=== PATIENT | male | born 1960 | race Caucasian/White ===

== ENCOUNTER 2020-11-28 09:14 | Outpatient (CLI) | payer BC | END 2020-11-28 09:15 | disposition home or self-care (01) | LOC: BICULT 09:14 | PROVIDERS: ATTEND Surgery | DX: R10.11 Right upper quadrant pain (principal); K76.0 Fatty (change of) liver, not elsewhere classified | CPT/HCPCS: 76705 ==

== ENCOUNTER 2020-11-29 13:41 | Inpatient (IN) | payer BC ==
[~2020-11-29 13:41] MED LIST: Iopamidol-370 76% 500 ML 1 ML ONE
[2020-11-29] MEDS ORDERED: Morphine 2 MG/ML VIAL SLOW IVP PRN (17:28)
[2020-11-29] MEDS ORDERED: Promethazine HCl 25 MG/ML VIAL IM PRN (17:28)
[2020-11-29] MEDS ORDERED: Ondansetron PF 4 MG/2 ML Vial IVP PRN (17:28)
[2020-11-29] MEDS ORDERED: Morphine 4 MG/ML VIAL SLOW IVP PRN (17:28)
[2020-11-29] MEDS ORDERED: Dextrose 5% in Water 1,000 ML IV PRN (17:28)
[2020-11-29] MEDS ORDERED: Acetaminophen 325 MG TAB PO PRN (17:28)
[2020-11-29] MEDS ORDERED: Dextrose 50% Abboject 50 ML SYRINGE SLOW IVP PRN (17:28)
[2020-11-29] MEDS ORDERED: Insulin Regular 300 UNITS/3 ML VIAL SC PRN (17:28)
[2020-11-29] MEDS ORDERED: hydrALAZINE 20 MG/ML VIAL SLOW IVP PRN (17:28)
[2020-11-29] MEDS ORDERED: Pantoprazole 40 MG VIAL IVP SCH (17:33)
[2020-11-29 17:36] VITALS: BMI 31.4
[2020-11-29] MEDS ORDERED: Sodium Chloride 0.9% (PF) 10 ML VIAL FS PRN (18:00)
[2020-11-29] MEDS: D5 1/2 NS w/20 mEq KCL 1,000 ML IV SCH (18:20)
[2020-11-30] MEDS: D5 1/2 NS w/20 mEq KCL 1,000 ML IV SCH ×4 (00:21→18:30)
[2020-11-30 02:23] LABS: SARS-CoV-2 PCR by NAA Not Detected (NotDetected)
[2020-11-30 06:33] LABS: #Basophils 0.1 thou/uL (0.0-0.2); #Eosinphils 0.3 thou/uL (0.0-0.7); #Lymphocytes 2.4 thou/uL (1.20-3.40); #Monocytes 0.9 thou/uL (0.11-0.59); #Neutrophils 6.9 thou/uL (1.40-6.50); %Basophils 0.6 % (0.0-1.0); %Eosinophils 2.7 % (0.0-10.0); %Monocytes 8.2 % (0.0-10.0); %Neutrophils 65.5 % (42.0-75.0); Mean Corpuscular HGB CONC 34.2 g/dL (32.0-36.0); Mean Corpuscular Hemoglobin 32.8 pg (27.0-31.0); Mean Corpuscular Volume 95.7 fL (78.0-98.0); Mean Platelet Volume 6.9 fL (7.4-10.4); Platelet Count 265 thou/uL (130-400); RBC Distribution Width 11.4 % (11.5-14.5); Red Blood Cell (RBC) Count 4.58 mill/uL (4.70-6.10); White Blood Cell (WBC) Count 10.5 thou/uL (4.8-10.8)
[2020-11-30 06:39] LABS: Prothrombin Time 13.4 sec (12.0-14.7)
[2020-11-30 06:40] LABS: PTT 33.4 sec (22.9-36.1)
[2020-11-30] MEDS: Pantoprazole 40 MG VIAL IVP SCH (08:24)
[2020-12-01] MEDS: D5 1/2 NS w/20 mEq KCL 1,000 ML IV SCH ×2 (02:19→09:06)
[2020-12-01] MEDS: Pantoprazole 40 MG VIAL IVP SCH (08:06)
[2020-12-01] MEDS ORDERED: PROPOFOL 200 MG/20 ML VIAL ONE (09:54)
[2020-12-01 14:56] VITALS: BP 162/94; TEMP 97.8
== END 2020-12-01 14:50 | disposition home or self-care (01) | DRG 437 ==
LOC: T4-B 17:01
PROVIDERS: ADMIT Surgery; ATTEND Surgery
PROC: 0DB38ZX Excision of Lower Esophagus, Via Natural or Artificial Opening Endoscopic, Diagnostic (ICD-10-PCS; principal; 2020-12-01)
DX: C78.7 Secondary malignant neoplasm of liver and intrahepatic bile duct (principal); I10 Essential (primary) hypertension; E11.9 Type 2 diabetes mellitus without complications; Z20.822 Contact with and (suspected) exposure to COVID-19; Z79.84 Long term (current) use of oral hypoglycemic drugs; Z79.899 Other long term (current) drug therapy
CPT/HCPCS: 36415; 36416; 74177; 76705; 80053; 82378; 83690; 85025; 85610; 85730; 87635; 88305; 88341; 88342; C9113; J2704; J3480; Q9967; U0003; U0005

== ENCOUNTER 2020-12-12 10:12 | Outpatient (CLI) | payer BC | END 2020-12-12 10:13 | disposition home or self-care (01) | LOC: PET 10:12 | PROVIDERS: ATTEND Internal Medicine Hematology & Oncology | DX: C15.9 Malignant neoplasm of esophagus, unspecified (principal); C78.7 Secondary malignant neoplasm of liver and intrahepatic bile duct; R59.0 Localized enlarged lymph nodes | CPT/HCPCS: 78815; A9552 ==

== ENCOUNTER 2020-12-22 09:27 | Outpatient (CLI) | payer BC ==
[2020-12-22 20:11] LABS: SARS-CoV-2 PCR by NAA Not Detected (NotDetected)
== END 2020-12-22 09:28 | disposition home or self-care (01) ==
LOC: LABBT 09:27
PROVIDERS: ATTEND Surgery
DX: Z01.812 Encounter for preprocedural laboratory examination (principal); C15.9 Malignant neoplasm of esophagus, unspecified; Z20.822 Contact with and (suspected) exposure to COVID-19
CPT/HCPCS: 87635; U0003; U0005

== ENCOUNTER 2020-12-25 13:12 | Outpatient (CLI) | payer BC | END 2020-12-25 13:13 | disposition home or self-care (01) | LOC: ULT 13:12 | PROVIDERS: ATTEND Internal Medicine Hematology & Oncology | DX: Z51.11 Encounter for antineoplastic chemotherapy (principal); C15.5 Malignant neoplasm of lower third of esophagus; I08.1 Rheumatic disorders of both mitral and tricuspid valves; Z79.899 Other long term (current) drug therapy | CPT/HCPCS: 93306 ==

== ENCOUNTER 2020-12-27 12:06 | Day surgery (SDC) | payer BC ==
[2020-12-26 11:42] VITALS: BMI 30.8
[2020-12-27] MEDS ORDERED: Midazolam HCl 2 mg/2 ml Vial ONE ×2 (13:34→13:52)
[2020-12-27] MEDS ORDERED: Bupivacaine 0.25% HCL 30 ML VIAL ONE (13:49)
[2020-12-27] MEDS ORDERED: Lidocaine 1% w/Epinephrine 1:100K 20 ML VIAL ONE (13:49)
[2020-12-27] MEDS ORDERED: Propofol 500 MG/50 ML VIAL ONE (13:52)
[2020-12-27] MEDS ORDERED: Fentanyl 100 MCG/2 ML VIAL ONE (13:52)
== END 2020-12-27 15:17 | disposition home or self-care (01) ==
LOC: SDC 12:06
PROVIDERS: ATTEND Surgery
PROC: 02HV33Z Insertion of Infusion Device into Superior Vena Cava, Percutaneous Approach (ICD-10-PCS; principal; 2020-12-27)
PROC: 0JH60WZ Insertion of Totally Implantable Vascular Access Device into Chest Subcutaneous Tissue and Fascia, Open Approach (ICD-10-PCS; principal; 2020-12-27)
DX: C15.9 Malignant neoplasm of esophagus, unspecified (principal); C78.7 Secondary malignant neoplasm of liver and intrahepatic bile duct; I10 Essential (primary) hypertension; Z79.84 Long term (current) use of oral hypoglycemic drugs; Z79.899 Other long term (current) drug therapy
CPT/HCPCS: 71045; C1788; J0690; J1642; J2250; J2704; J3010; S0020

== ENCOUNTER 2021-03-22 09:45 | Inpatient (IN) | payer BC ==
[2021-03-22] MEDS ORDERED: Morphine 4 MG/ML VIAL ONE (10:29)
[2021-03-22] MEDS ORDERED: Ondansetron PF 4 MG/2 ML Vial ONE (10:29)
[2021-03-22 10:30] LABS: Hemoglobin 10.2 g/dL (14.0-18.0); Mean Corpuscular HGB CONC 31.9 g/dL (32.0-36.0); Mean Corpuscular Hemoglobin 29.2 pg (27.0-31.0); Mean Corpuscular Volume 91.8 fL (78.0-98.0); Mean Platelet Volume 7.5 fL (7.4-10.4); Platelet Count 309 thou/uL (130-400); RBC Distribution Width 16.8 % (11.5-14.5); Red Blood Cell (RBC) Count 3.48 mill/uL (4.70-6.10); White Blood Cell (WBC) Count 28.6 thou/uL (4.8-10.8)
[2021-03-22 10:40] LABS: INR-International Normal Ratio 1.1; PTT 37.5 sec (22.9-36.1); Prothrombin Time 14.3 sec (12.0-14.7)
[2021-03-22 10:47] LABS: ALT (SGPT) 24 U/L (8-55); AST (SGOT) 69 U/L (5-34); Albumin 2.9 g/dL (3.4-4.8); Alkaline Phosphatase 315 U/L (40-110); Anion Gap 12 mmol/L (10-20); BUN (Urea Nitrogen) 21 mg/dL (8.4-25.7); Bilirubin, Total 0.6 mg/dL (0.2-1.2); Calc. Creatinine Clearance 0 mL/min (70-130); Calcium 11.8 mg/dL (7.8-10.44); Carbon Dioxide 27 mmol/L (23-31); Chloride 101 mmol/L (98-107); Globulin 4.1 g/dL (2.4-3.5); Glucose 121 mg/dL (80-115); Potassium 3.9 mmol/L (3.5-5.1); Sodium 136 mmol/L (136-145)
[2021-03-22 10:56] LABS: Band 11 % (5-11); Eosinophils 4 % (0-10); Lymphocytes 10 % (21-51); MDiff Complete? YES; Metamyelocyte 1 % (0-0); Monocytes 2 % (0-10); Neutrophil 72 % (42-75); Platelet Morphology Comment Appears Adequate; Polychromasia SLIGHT = 2-3 cells (100X) (0-2/hpf)
[2021-03-22 12:05] LABS: Bilirubin Negative (Negative); Blood, Urine Negative (Negative); Clarity Clear (Clear); Glucose, Urine (Dipstick) Normal (Negative); Ketone, Urine Negative (Negative); Leukocyte Negative Leu/uL (Negative); Nitrite Negative (Negative); Protein, Urine (Dipstick) 10 mg/dL (Neg-Trace); Specific Gravity, Urine 1.017 (1.002-1.036); Urobilinogen Normal mg/dL (Less than 2)
[2021-03-22 12:42] LABS: SARS-CoV-2 NAA Rapid Test Not Detected (NotDetected)
[2021-03-22] MEDS ORDERED: VANCOMYCIN 2 GRAM/400 ML BAG 2 GM in Premix Bag 1 BAG IVPB SCH (13:30)
[2021-03-22] MEDS ORDERED: Ondansetron ODT 4 MG TAB PO PRN (13:58)
[2021-03-22] MEDS ORDERED: Acetaminophen 650 MG Suppository PR PRN (13:58)
[2021-03-22 14:07] LABS: Lactic Acid 1.8 mmol/L (0.5-2.2)
[2021-03-22] MEDS ORDERED: Cefepime 2 GM in Sodium Chloride 0.9% 100 ML IVPB SCH (16:00)
[2021-03-22] MEDS ORDERED: Morphine 4 MG/ML VIAL SLOW IVP PRN ×2 (16:12→16:27)
[2021-03-22] MEDS ORDERED: Morphine 2 MG/ML VIAL SLOW IVP PRN ×2 (16:12→16:27)
[2021-03-22] MEDS ORDERED: Sodium Chloride 0.9% 1,000 ML IV SCH (16:15)
[2021-03-22] MEDS ORDERED: Mineral Oil ENEMA PR SCH (16:30)
[2021-03-22] MEDS ORDERED: Magnesium 2 GM/50 ML 2 GM in Premix Bag 1 BAG IVPB SCH (17:00)
[2021-03-22] MEDS: Lactated Ringer's 1,000 ML IV SCH (17:22)
[2021-03-22] MEDS: Morphine 4 MG/ML VIAL SLOW IVP SCH ×2 (17:23→20:18)
[2021-03-22 18:25] VITALS: BMI 24.5
[2021-03-22] MEDS: Senokot S 8.6-50 MG TAB PO SCH (20:19)
[2021-03-23] MEDS: VANCOMYCIN 1.25 GM/250 ML BAG 1.25 GM in Premix Bag 1 BAG IVPB SCH ×2 (00:05→18:22)
[2021-03-23] MEDS: Lactated Ringer's 500 ML IV SCH ×2 (00:39→00:53)
[2021-03-23] MEDS ORDERED: Lactated Ringer's 500 ML IV SCH ×3 (00:45→02:30)
[2021-03-23] MEDS: Morphine 4 MG/ML VIAL SLOW IVP SCH ×3 (01:26→20:44)
[2021-03-23] MEDS: Lactated Ringer's 1,000 ML IV SCH ×4 (02:26→23:38)
[2021-03-23] MEDS ORDERED: Morphine 4 MG/ML VIAL SLOW IVP PRN ×3 (04:40→09:08)
[2021-03-23] MEDS ORDERED: Morphine 2 MG/ML VIAL SLOW IVP PRN ×4 (04:40→09:08)
[2021-03-23] MEDS ORDERED: Cefepime 2 GM in Sodium Chloride 0.9% 100 ML IVPB SCH (06:00)
[2021-03-23 07:07] LABS: ALT (SGPT) 60 U/L (8-55); AST (SGOT) 264 U/L (5-34); Albumin 2.2 g/dL (3.4-4.8); Alkaline Phosphatase 231 U/L (40-110); Anion Gap 14 mmol/L (10-20); BUN (Urea Nitrogen) 25 mg/dL (8.4-25.7); Bilirubin, Total 0.5 mg/dL (0.2-1.2); Calc. Creatinine Clearance 77 mL/min (70-130); Calcium 10.3 mg/dL (7.8-10.44); Carbon Dioxide 23 mmol/L (23-31); Chloride 104 mmol/L (98-107); Globulin 3.2 g/dL (2.4-3.5); Glucose 137 mg/dL (80-115); Potassium 4.5 mmol/L (3.5-5.1); Protein, Total 5.4 g/dL (5.8-8.1); Sodium 136 mmol/L (136-145)
[2021-03-23] MEDS: Ondansetron PF 4 MG/2 ML Vial IVP PRN ×2 (07:25→13:45)
[2021-03-23] MEDS ORDERED: metFORMIN 500 MG TAB PO SCH (08:00)
[2021-03-23] MEDS: traMADol HCl 50 MG TAB PO PRN ×2 (08:16→15:52)
[2021-03-23] MEDS: Senokot S 8.6-50 MG TAB PO SCH ×2 (08:16→22:44)
[2021-03-23] MEDS: Polyethylene Glycol 3350 17 GM Packet PO SCH (08:17)
[2021-03-23] MEDS: Enoxaparin Sodium 40 MG/0.4 ML SYRINGE SC SCH (08:17)
[2021-03-23] MEDS ORDERED: Lorazepam 2 MG/ML VIAL SLOW IVP SCH (08:33)
[2021-03-23 09:00] LABS: Hemoglobin 6.5 g/dL (14.0-18.0); Mean Corpuscular HGB CONC 31.8 g/dL (32.0-36.0); Mean Corpuscular Hemoglobin 29.3 pg (27.0-31.0); Mean Platelet Volume 7.8 fL (7.4-10.4); Platelet Count 310 thou/uL (130-400); RBC Distribution Width 16.5 % (11.5-14.5); White Blood Cell (WBC) Count 33.2 thou/uL (4.8-10.8)
[2021-03-23] MEDS ORDERED: Amlodipine 10 MG TAB PO SCH (09:00)
[2021-03-23] MEDS ORDERED: Hydrochlorothiazide 25 MG TAB PO SCH (09:00)
[2021-03-23] MEDS ORDERED: Losartan 25 MG TAB PO SCH (09:00)
[2021-03-23] MEDS ORDERED: Morphine 4 MG/ML VIAL SLOW IVP SCH (09:00)
[2021-03-23 10:27] LABS: Band 21 % (5-11); Lymphocytes 4 % (21-51); MDiff Complete? YES; Metamyelocyte 5 % (0-0); Monocytes 2 % (0-10); Myelocyte 2 % (0-0); Neutrophil 65 % (42-75); Platelet Morphology Comment Appears Adequate; Polychromasia SLIGHT = 2-3 cells (100X) (0-2/hpf)
[2021-03-23] MEDS: Cefepime 2 GM in Sodium Chloride 0.9% 100 ML IVPB SCH ×2 (10:47→19:05)
[2021-03-23] MEDS ORDERED: Pantoprazole 40 MG VIAL IVP SCH (12:00)
[2021-03-23] MEDS ORDERED: Activase 2 MG VIAL CATH SCH (20:00)
[2021-03-23] MEDS ORDERED: Sterile Water 10 ML VIAL IVP SCH (20:00)
[2021-03-23] MEDS ORDERED: VANCOMYCIN 1.25 GM/250 ML BAG 1.25 GM in Premix Bag 1 BAG IVPB SCH (20:00)
[2021-03-23 20:35] LABS: Hemoglobin 7.4 g/dL (14.0-18.0)
[2021-03-24] MEDS: Morphine 4 MG/ML VIAL SLOW IVP SCH ×4 (02:07→12:21)
[2021-03-24] MEDS: Cefepime 2 GM in Sodium Chloride 0.9% 100 ML IVPB SCH (02:15)
[2021-03-24] MEDS: Ondansetron PF 4 MG/2 ML Vial IVP PRN ×2 (02:16→08:45)
[2021-03-24 05:07] LABS: Magnesium 1.9 mg/dL (1.6-2.6)
[2021-03-24] MEDS: Enoxaparin Sodium 40 MG/0.4 ML SYRINGE SC SCH (08:46)
[2021-03-24] MEDS: Senokot S 8.6-50 MG TAB PO SCH (08:46)
[2021-03-24] MEDS: Polyethylene Glycol 3350 17 GM Packet PO SCH (08:46)
[2021-03-24] MEDS ORDERED: Pantoprazole 40 MG VIAL IVP SCH (09:00)
[2021-03-24 11:44] VITALS: BP 153/56; TEMP 98.7
== END 2021-03-24 13:40 | disposition hospice, home (50) | DRG 374 ==
LOC: ERS 09:45 → ERHOLD 13:12 → ONC 15:40
PROVIDERS: ADMIT Family Medicine; ATTEND Family Medicine
PROC: 30233N1 Transfusion of Nonautologous Red Blood Cells into Peripheral Vein, Percutaneous Approach (ICD-10-PCS; principal; 2021-03-23)
DX: C15.9 Malignant neoplasm of esophagus, unspecified (principal); A41.9 Sepsis, unspecified organism; G92 Toxic encephalopathy; K22.3 Perforation of esophagus; E43 Unspecified severe protein-calorie malnutrition; C78.7 Secondary malignant neoplasm of liver and intrahepatic bile duct; Z66 Do not resuscitate; Z20.822 Contact with and (suspected) exposure to COVID-19; I10 Essential (primary) hypertension; K59.00 Constipation, unspecified; E83.52 Hypercalcemia; E86.0 Dehydration; R73.03 Prediabetes; D63.0 Anemia in neoplastic disease; K21.9 Gastro-esophageal reflux disease without esophagitis; Z87.891 Personal history of nicotine dependence; Z68.24 Body mass index [BMI] 24.0-24.9, adult; Z79.899 Other long term (current) drug therapy
CPT/HCPCS: 0240U; 36415; 36416; 36430; 70551; 71045; 71260; 74177; 76705; 80053; 81003; 82248; 82330; 83605; 83615; 83735; 84100; 84145; 84484; 84550; 85025; 85610; 85730; 86850; 86900; 86901; 87040; 87086; 93005; 94760; 96374; 96375; C9113; J0692; J1642; J1650; J2060; J2270; J2405; J3370; J3475; J3490; P9016